=== PATIENT | male | born 1970 | race Caucasian/White ===

== ENCOUNTER → 2017-11-16 16:40 | Outpatient (CLI) | payer OTHER, SELFPAY ==
[2017-11-16 17:36] LABS: ALB/GLOB Ratio 1.1 RATIO (0.9-2.4); AST(SGOT) 21 U/L (15-37); Alanine Aminotransfer ALT/SGPT 26 U/L (16-61); Albumin, Serum 3.8 g/dL (3.2-5.0); Alkaline Phosphatase 68 U/L (45-117); Anion Gap 6 (5-15); BUN 11 mg/dL (7-18); BUN/Creat Ratio 10.7 RATIO (10-20); Calcium,Total 8.1 mg/dL (8.5-10.1); Chloride 107 mmol/L (98-107); Creatinine, Serum 1.03 mg/dL (0.70-1.30); EST Glomerular Filtration Rate 83 mL/min (>60); Est Glom Filt Rate - Afr Amer 100 mL/min (>60); Globulin 3.5 g/dL (2.2-4.2); Glucose 90 mg/dL (74-106); Potassium 3.8 mmol/L (3.5-5.1); Protein, Total 7.3 g/dL (6.4-8.2); Sodium Level 140 mmol/L (136-145)
== END ==
LOC: BFHLAB 16:43
PROVIDERS: Family Provider Family Medicine; PCP Family Medicine; Visit Provider Family Medicine
DX: Z51.81 Encounter for therapeutic drug level monitoring (principal); R35.8 Other polyuria
CPT/HCPCS: 36415; 80053; 83036

== ENCOUNTER → 2018-06-13 16:16 | Outpatient (CLI) | payer OTHER, SELFPAY ==
--- NOTE | 2018-06-13 16:36 | MRI_ITS ---
STUDY: MRI LUMBAR SPINE WITHOUT CONTRAST REASON FOR EXAM: Male, 48 years old. Pain and history of degenerative disc disease TECHNIQUE: Standardized fat and water weighted pulse sequences were obtained in the sagittal and axial planes. COMPARISON: August 07, 2016 FINDINGS: T12-L1: Normal endplates. Normal disc height, hydration and morphology. Normal bilateral facet joints. Normal central canal and bilateral lateral recesses. Normal bilateral intervertebral neural foramina. Normal lumbar lordosis. There is no substantial scoliosis. Normal conus medullaris that terminates at the T12 level. L1-2: Normal endplates. Normal disc height, hydration and morphology. Normal bilateral facet joints. Normal central canal and bilateral lateral recesses. Normal bilateral intervertebral neural foramina. L2-3: Normal endplates. Normal disc height, hydration and morphology. Normal bilateral facet joints. Normal central canal and bilateral lateral recesses. Normal bilateral intervertebral neural foramina. L3-4: Normal endplates. Normal disc height, hydration and morphology. Normal bilateral facet joints. Normal central canal and bilateral lateral recesses. Normal bilateral intervertebral neural foramina. L4-5: Disc space narrowing and desiccation. Bulging annulus with mild central canal and moderate bilateral foraminal stenoses. This is unchanged. L5-S1: Disc space narrowing and desiccation. Broad central and right paracentral disc protrusion with mild central canal stenosis. Bulging annulus with mild bilateral foraminal stenoses. This is unchanged. Normal visualized sacral ala. Normal visualized paraspinous soft tissue structures. MRI/Spine Lumbar (Routine) IMPRESSION: Stable lower lumbar disc disease. Moderate bilateral foraminal stenoses at the L4-5 level. Electronically Signed: Forrest Dash MD at 1:48 EST Tel , Service support ,
--- OUTSIDE RECORDS SUMMARY | 2018-07-30 13:54 | XMS RPT_ITS ---
:1970 Author Organization OH[facility] Care Team Providers Name Role Phone Flo Tiwari Attending Unavailable Flo Tiwari Primary Care Unavailable Flo Tiwari Attending Unavailable Flo Tiwari Referring Unavailable Flo Tiwari Primary Care Unavailable PROBLEMS PROBLEMS DATE TYPE CONDITION / CODE ATTENDING STATUS SOURCE 11/16/2017 Unknown Z51.81 - Flo Tiwari Active [place] Encounter for Community therapeutic drug Hospital level monitoring Repository / Z51.81(ICD-10) 11/16/2017 Unknown R35.8 - Other Flo Tiwari Active [place] polyuria / Community R35.8(ICD-10) Hospital Repository PROCEDURES PROCEDURES No Procedure Records FoundRESULTS RESULTS SPINE LUMBAR Observed: 06/13/2018 Status: F Source: [place] (ROUTINE) 4:37 PM [facility] HOSPITAL REPOSITORY [facility] Imaging Services [address] [place] [address] Spine Lumbar (Routine) MR#: [id number] Acct: [id number] Name: SARATH ALCAZAR Rep #: [id number] : 1970 M 48 From: Forrest Dash MD PCP: Flo Tiwari DO Status: REG CLI Study: Spine Lumbar (Routine) Date of Exam: 06/13/18 Exam# [id number] Ordering Dr: Flo Tiwari DO STUDY: MRI LUMBAR SPINE WITHOUT CONTRAST REASON FOR EXAM: Male, 48 years old. Pain and history of degenerative disc disease TECHNIQUE: Standardized fat and water weighted pulse sequences were obtained in the sagittal and axial planes. COMPARISON: August 07, 2016 FINDINGS: T12-L1: Normal endplates. Normal disc height, hydration and morphology. Normal bilateral facet joints. Normal central canal and bilateral lateral recesses. Normal bilateral intervertebral neural foramina. Normal lumbar lordosis. There is no substantial scoliosis. Normal conus medullaris that terminates at the T12 level. L1-2: Normal endplates. Normal disc height, hydration and morphology. Normal bilateral facet joints. Normal central canal and bilateral lateral recesses. Normal bilateral intervertebral neural foramina. L2-3: Normal endplates. Normal disc height, hydration and morphology. Normal bilateral facet joints. Normal central canal and bilateral lateral recesses. Normal bilateral intervertebral neural foramina. L3-4: Normal endplates. Normal disc height, hydration and morphology. Normal bilateral facet joints. Normal central canal and bilateral lateral recesses. Normal bilateral intervertebral neural foramina. L4-5: Disc space narrowing and desiccation. Bulging annulus with mild central canal and moderate bilateral foraminal stenoses. This is unchanged. L5-S1: Disc space narrowing and desiccation. Broad central and right paracentral disc protrusion with mild central canal stenosis. Bulging annulus with mild bilateral foraminal stenoses. This is unchanged. Normal visualized sacral ala. Normal visualized paraspinous soft tissue structures. MRI/Spine Lumbar (Routine) IMPRESSION: Stable lower lumbar disc disease. Moderate bilateral foraminal stenoses at the L4-5 level. Electronically Signed: Forrest Dash MD at 1:48 EST Tel , Service support , CC: Flo Tiwari DO [employer]: Signed HEMOGLOBIN A1C Collected: 11/16/2017 Status: F Source: [place] 4:43 PM [facility] REPOSITORY TYPE CODE TESTS RESULT OUT OF RANGE REFERENCE UNITS LAB L501.9985 4.2-6.3 % Normal HGB A1C 5.0 Performed By: #### L501.9985 #### [facility] Laboratory [address] [place], [place], [address] COMPREHENSIVE METABOLIC Collected: 11/16/2017 Status: F Source: [place] [facility] 4:43 PM [facility] REPOSITORY Order Comment: Comments: WHOLE BLOOD, SEND BOTH TUBES PLEASE TYPE CODE TESTS RESULT OUT OF RANGE REFERENCE UNITS LAB L501.0100 74-106 mg/dL Normal GLU 90 Result Comment: Please note revised GLUCOSE reference range effective 2017. LAB L501.1000 7-18 mg/dL Normal BUN 11 LAB L501.1100 0.70-1.30 mg/dL Normal CREAT,SERUM 1.03 Result Comment: The validity of the calculated GFR AND GFRAA in patients over 70 years has not been determined. Clinical correlation is essential. LAB L501.1110 >60 mL/min Normal EST GFR 83 Result Comment: Non- GFR Calc LAB L501.1115 >60 mL/min Normal EST GFR - AA 100 Result Comment: GFR Calc LAB L501.1300 10-20 RATIO Normal BUN/CRE 10.7 LAB L501.1500 6.4-8.2 g/dL T Normal PROT 7.3 LAB L501.1800 3.2-5.0 g/dL Normal ALB 3.8 LAB L501.1950 2.2-4.2 g/dL Normal GLOB 3.5 LAB L501.2000 0.9-2.4 RATIO Normal A/G 1.1 LAB L501.2200 8.5-10.1 mg/dL Low CA 8.1 LAB L501.4100 15-37 U/L Normal AST 21 LAB L501.4305 45-117 U/L Normal ALK P 68 LAB L501.4405 16-61 U/L Normal ALT 26 LAB L501.4600 0.20-1.00 mg/dL T Normal BILI 0.60 LAB L501.5300 136-145 mmol/L NA Normal 140 LAB L501.5600 3.5-5.1 mmol/L K Normal 3.8 LAB L501.5900 98-107 mmol/L CL Normal 107 LAB L501.6100 21.0-32.0 mmol/L Normal CO2 27.0 LAB L501.6200 5-15 Normal GAP 6 Performed By: #### L500.4050 #### [facility] [address] [place], [address] MISCELLANEOUS LAB Collected: 11/16/2017 Status: F Source: [place] PROCEDURE 4:43 PM [facility] REPOSITORY Order Comment: Comments: WHOLE BLOOD, SEND BOTH TUBES PLEASE Test(s) Ordered: [id number] TYPE CODE TESTS RESULT OUT OF RANGE REFERENCE UNITS LAB L801.1541 Normal [facility] [place] Result Comment: TEST RESULT LIMITS Drug Screen 16 w/Conf, WB AMPHETAMINES, [place] Negative ng/mL Cutoff:50 BARBITURATES, [place] Negative ug/mL Cutoff:0.1 BENZODIAZEPINES, [place] Negative ng/mL Cutoff:20 COCAINE/METABOLITE,IA Negative ng/mL Cutoff:25 PHENCYCLIDINE, [place] Negative ng/mL Cutoff:8 THC (MARIJUANA) MTB,IA Negative ng/mL Cutoff:5 OPIATES, IA ++POSITIVE++ ng/mL Cutoff:5 OXYCODONES, IA Negative ng/mL Cutoff:5 METHADONE, IA Negative ng/mL Cutoff:25 FENTANYL, IA Negative ng/mL Cutoff:1.0 BUPRENORPHINE, IA Negative ng/mL Cutoff:1.0 PROPOXYPHENE, IA Negative ng/mL Cutoff:50 MEPERIDINE, IA Negative ng/mL Cutoff:100 TRAMADOL, IA Negative ng/mL Cutoff:50 GABAPENTIN, [place] ++POSITIVE++ ug/mL Cutoff:1.0 CARISOPRODOL, IA Negative ug/mL Cutoff:0.5 This test was developed and its performance characteristics determined by [facility]. It has not been cleared or approved by the Food and Drug Administration. OPIATES,MS,WB/SP RFX Opiate Confirmation Positive Codeine Negative ng/mL Morphine 20.8 ng/mL 6-Acetylmorphine Negative Hydrocodone Negative ng/mL Hydromorphone Negative ng/mL Dihydrocodeine Negative ng/mL Confirmation threshold: 1.0 ng/mL GABAPENTIN,IA,WB/SP RFX Gabapentin Confirmation Positive Gabapentin 4.0 ug/mL Confirmation threshold: 1.0 ug/mL TESTING PERFORMED AT [facility]. ORIGINAL REPORT ON FILE IN LAB CONTAINS ADDITIONAL TEST SITE INFORMATION. Performed By: #### L801.1541 #### [facility] [address] [place], [address] ALLERGIES ALLERGIES DATE TYPE / CODE NAME / CODE REACTION SEVERITY SOURCE 06/26/2014 Drug No Known Unknown [facility] Allergy/4160 Allergies/F00 Hospital 18423(SNOMED [id number](RXNOR Repository CT) M) ENCOUNTERS ENCOUNTERS ADMIT/DISCHARGE ACCOUNT ADMITTING ENCOUNTER LOCATION SOURCE NUMBER CLASS 06/13/2018 [id number] Ambulatory [facility] 2 [facility] ing:MRI Repository 11/16/2017 [id number] [facility] 9 [facility] ing:BFHLAB Repository PAYERS PAYERS ENCOUNTER GUARANTOR PAYER SUBSCRIBER SOURCE 06/13/2018 BRAIN E Primary MELISA Mujica [place] [id number] Insurance:Arlette BUTTS: Community [place]: [id number] [id number] Repository [address]Xfw: 330) Date:[id number] [phone] () [id number], [place] [address]GL: 06/13/2018 [facility] [place] [facility]SELF [facility] Number: Effective Repository Date:2018-06-05 11/16/2017 Sarath E Primary MELISA Mujica [place] [id number] Insurance:Arlette BUTTS: Community [place]: [id number] [id number] Repository [address]Ytg: [phone]) Date:[id number] [phone] () [id number], [place] [address]NF: 11/16/2017 Secondary NOT GIVENUNK [place] Insurance:SELF PAY [facility] Number: Effective Repository Date:2017-11-16
== END ==
LOC: MRI 16:18
PROVIDERS: Family Provider Family Medicine; PCP Family Medicine; Referring Provider Family Medicine; Visit Provider Family Medicine
DX: M48.061 Spinal stenosis, lumbar region without neurogenic claudication (principal); M51.36 Other intervertebral disc degeneration, lumbar region; M51.16 Intervertebral disc disorders with radiculopathy, lumbar region
CPT/HCPCS: 72148

== ENCOUNTER → 2020-05-25 16:24 | Outpatient (CLI) | payer OTHER, SELFPAY ==
[2020-05-25 17:27] LABS: Erythrocyte Sedimentation Rate 3 mm/hr (0-15)
[2020-05-25 17:51] LABS: Rheumatoid Factor < 10.0 IU/mL (<15)
[2020-05-28 09:55] LABS: CCP IgG Antibodies 8 units (0-19)
[2020-05-28 16:04] LABS: ANTINUCLEAR ANTIBODIES DIRECT Negative (Negative)
== END ==
LOC: BFHLAB 16:25
PROVIDERS: PCP Family Medicine; Visit Provider Family Medicine
DX: M25.50 Pain in unspecified joint (principal); R79.82 Elevated C-reactive protein (CRP)
CPT/HCPCS: 36415; 85652; 86038; 86140; 86200; 86225; 86235; 86431

== ENCOUNTER → 2021-01-21 17:40 | Outpatient (CLI) | payer OTHER, SELFPAY ==
--- NOTE | 2021-01-21 18:15 | MRI_ITS ---
STUDY: MRI LUMBAR SPINE WITHOUT CONTRAST REASON FOR EXAM: Male, 50 years old. RIGHT lumbar radiculopathy, low back pain foot numbness TECHNIQUE: Standardized fat and water weighted pulse sequences were obtained in the sagittal and axial planes. COMPARISON: 13 June 2018, 07 August 2016 FINDINGS: Appearance is similar and comparable to prior. T12-L1: Normal endplates. Normal disc height, hydration and morphology. Normal bilateral facet joints. Normal central canal and bilateral lateral recesses. Normal bilateral intervertebral neural foramina. Normal lumbar lordosis. There is no substantial scoliosis. Normal conus medullaris that terminates at the T12-L1 with normal cauda equina L1-2: Normal endplates. Normal disc height, hydration and morphology. Normal bilateral facet joints. Normal central canal and bilateral lateral recesses. Normal bilateral intervertebral neural foramina. L2-3: Normal endplates. Normal disc height, hydration and morphology. Normal bilateral facet joints. Normal central canal and bilateral lateral recesses. Normal bilateral intervertebral neural foramina. L3-4: Normal endplates. Normal disc height, hydration and morphology. Normal bilateral facet joints. Normal central canal and bilateral lateral recesses. Normal bilateral intervertebral neural foramina. L4-5: Degenerated endplates. Decreased disc height, altered hydration and degenerative bulge morphology. Mildly degenerated bilateral facet joints. Canal is patent. There is minor right lateral recess stenosis with patent left recess. Foramina are moderately stenotic. L5-S1: Degenerated endplates. Decreased disc height, altered hydration and degenerative bulge morphology. There is proximity of herniated disc material to the right traversing L5 nerve root without anatomic compression. Mildly degenerated bilateral facet joints. Canal And lateral recesses are patent Foramina are moderately stenotic. Normal visualized sacral ala. Normal visualized paraspinous soft tissue structures. MRI/Spine Lumbar (Routine) IMPRESSION: 1. Stable appearance since prior. 2. Patent canal. 3. L4-L5 and L5-S1 disc degeneration with bilateral moderate foraminal stenosis. 4. Stability since 2018. Electronically Signed: Eduar Anthony MD at 20:16 EDT Tel , Service support ,
== END ==
PROVIDERS: PCP Family Medicine; Referring Provider Family Medicine; Visit Provider Family Medicine
DX: M54.17 Radiculopathy, lumbosacral region (principal); M51.26 Other intervertebral disc displacement, lumbar region
CPT/HCPCS: 72148

== ENCOUNTER → 2021-03-28 10:22 | Outpatient (CLI) | payer OTHER, SELFPAY ==
--- NOTE | 2021-03-28 12:22 | EKG12_ITS ---
Test Reason : PRE OP Blood Pressure : / mmHG Vent. Rate : 094 BPM Atrial Rate : 094 BPM P-R Int : 150 ms QRS Dur : 114 ms QT Int : 386 ms P-R-T Axes : 056 -12 022 degrees QTc Int : 482 ms Normal sinus rhythm Prolonged QT Abnormal ECG Confirmed by WALDO MCCOY, NAKITA ([id number]), school photograph editor DARA REINA ([id number]) on 03/30/2021 10:59:53 AM Referred By: Ritesh Palacios Confirmed By:NAKITA HAAS MD
[2021-03-28 12:52] LABS: Absolute Lymphocyte Count 1.85 X10^3/uL (0.83-4.51); Absolute Neutrophil Count 5.1 X10^3/uL (2.0-7.7); Basophil# 0.04 X10^3/uL; Basophil% 0.5 % (0-1); Eosinophil# 0.23 X10^3/uL; Eosinophils% 2.9 % (0-5); Hematocrit 41.8 % (40-54); Hemoglobin 14.5 g/dL (13.0-16.5); Lymphocyte # 1.85 X10^3/ul (0.83-4.51); Lymphocyte % 23.4 % (19-41); Mean Corp Hgb Conc 34.7 g/dL (32-36); Mean Corpuscular Hgb 29.8 pg (27.0-32.0); Mean Platelet Vol. 9.2 fl (6.2-12.0); Monocyte# 0.66 X10^3/uL; Monocyte% 8.4 % (0-10); NRBC Flagged by Analyzer 0 % (0-5); Neutrophil # 5.08 X10^3/uL (2.7-7.7); Neutrophil % 64.3 % (47-70); Platelet Count 218 K/mm3 (150-450); RBC Distribution Width SD 37.7 fl (35.1-43.9); Red Blood Count 4.86 M/mm3 (4.6-6.2); White Blood Count 7.9 K/mm3 (4.4-11.0)
[2021-03-28 13:29] LABS: Magnesium 2.3 mg/dL (1.6-2.6)
[2021-03-28 13:34] LABS: Anion Gap 7 (5-15); BUN 10 mg/dL (7-18); BUN/Creat Ratio 10.6 RATIO (10-20); Calcium,Total 8.1 mg/dL (8.5-10.1); Chloride 106 mmol/L (98-107); Creatinine, Serum 0.95 mg/dL (0.70-1.30); EST Glomerular Filtration Rate 90 mL/min (>60); Est Glom Filt Rate - Afr Amer 109 mL/min (>60); Glucose 109 mg/dL (74-106); Potassium 3.4 mmol/L (3.5-5.1); Sodium Level 139 mmol/L (136-145)
[2021-03-28 14:13] LABS: HIV - WCH Non-Reactive (Nonreactive); Hepatitis B Surface Antibody Non-Reactive; Hepatitis C Antibody Non-Reactive (Nonreactive)
[2021-03-29 14:38] LABS: Hepatitis A AB, Total Negative (Negative)
--- NOTE | 2021-04-04 09:00 | PCM.HP.BLA ---
History and Physical Date of Admission: 04/05/21 [facility] [id number] [id number] OFFICE VISITDate of Service: 02/02/21 MR#:[id number]:[id number]: SARATH ALCAZAR ERep #:[id number] Provider:Dr. Ritesh Palacios DOAge/Sex: 51/M Location:S[place]AHKeaton:Signed Intake Vital Signs 02/02/21 14:32 BMI 27.9 Intake Visit Reasons: LUMBAR SPINE Allergies No Known Allergies Allergy (Verified 06/26/14 11:18) Medications cyclobenzaprine 10 mg tablet 10 mg PO TID 02/02/21 [History Confirmed 02/02/21] gabapentin 100 mg capsule 100 mg PO TID 02/02/21 [History Confirmed 02/02/21] hydroxychloroquine 200 mg tablet 200 mg PO DAILY 02/02/21 [History Confirmed 02/02/21] oxycodone 15 mg tablet 15 mg PO BID PRN 02/02/21 [History Confirmed 02/02/21] tadalafil 5 mg tablet 5 mg PO DAILY 02/02/21 [History Confirmed 02/02/21] tamsulosin 0.4 mg capsule 0.4 mg PO DAILY 02/02/21 [History Confirmed 02/02/21] [facility] Medical History (Updated 02/02/21 @ 15:[address] Ritesh Palacios DO) Eye injury Family History (Updated 02/02/21 @ 14:58 by Ashley Jasso) Mother Diabetes Hypertension Father Diabetes Grandmother Cancer Social History Smoking Status: Never smoker Smokeless tobacco user: snuff HPI LUMBAR SPINE Details: Parts of this documentation were recorded by a scribe, this documentation accurately reflects the service provided and the decisions made by me, Dr. Ritesh Palacios DO 02/02/21 [id number]. SARATH ALCAZAR is a 51 year old M here today for lumbar spine pain. Patient was referred by Dr. Tiwari and received a MRI of his Lumbar spine in 01/19. Patient states his pain is localized in his lumbar spine all tho he does have some aches/pains in his legs and feet that he states is do to the way he walks from his back pain. Denies any radiating pain from his lower back. Patient states he does have some numbness/tingling in his right leg and foot. Patient states he does get pain in his buttocks on occasion but never in his hips or groin. Patient states he does have issues with bowel movements and is unsure if that is do to something in his back. Patient states he has had back pain his whole life/about 10 years old. Patient has had injections in his back about 4-5 years ago, he stopped getting them done because they stopped working. Patient has tried the following conservative treatments for six weeks or greater: Home exercises provided by a provider, corticosteroid injections and oral corticosteroids, narcotic and non-narcotic analgesic medication(s), aged or disabled carer, PT/OT, bracing, pain management techniques. Patient has found no relief and would like to further investigate their s/s. Therefore, will order a(n) [TEST/STUDY] to appropriately determine if [tx/sx] would be appropriate for the patient. Sarath is a most pleasant gentleman 51 years old whose chief complaint is that of low back pain. He has a secondary complaint of occasional pain in his right leg but the majority of his pain is undoubtedly in his low back activity tends to make it worse though not necessarily every time. His job requires him to do some lifting and some physical work but he is able to do it. He states that the last year the pain has gradually worsened more so than it used to be which is why he is here for an opinion. A surgeon in [place] told him he could take away his leg pain but not his back pain. His back pain however is by far his main complaint. When the pain is bad it is as bad as an 8/10 when it is good it as little as a 4/10, but it is always there every single day. He denies any bowel or bladder dysfunction. He denies a history of unexplained weight loss night fever sweats or chills. On examination he has little pain with extension little pain with flexion of his lumbar spine. He has good motor strength of all the major muscle groups of both lower extremities. He is neurologically intact with 2+ patella and 2+ Achilles reflexes bilaterally. He has no muscle atrophy. He can stand on his toes and he can stand on his heels without difficulty. He has no long tract signs. Clonus is absent and Babinski's are downgoing. I reviewed his MRI scan demonstrates that he has significant degeneration of the L4-5 and L5-S1 discs. With small protrusions of each. We had a long discussion regarding any surgical options that are available. I told him if anything is done that he should have a fusion of both levels. In this day and age we usually does these from the front and the back we called a 360 degree fusion. Of course this is a big undertaking and it would require a long recovery. Told him that he could probably be off work for his little as 4 months and probably as much is 6 months. This is because of the nature of what he does. 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 Nonetheless he has a lot to think about. He will discuss it with his and in fact bring her in if he decides that he wants to have surgical intervention. Otherwise I will see him on a as needed basis. Coding Level of Care Code Off vis,new,level 3 Diagnoses DDD (degenerative disc disease), lumbar M51.36 Time Spent (min) 35 Assessment and Plan Assessment and Plan (1) DDD (degenerative disc disease), lumbar
== END ==
PROVIDERS: Anesthesiology; PCP Family Medicine; Referring Provider Orthopaedic Surgery; Visit Provider Orthopaedic Surgery
DX: Z01.818 Encounter for other preprocedural examination (principal); Z01.810 Encounter for preprocedural cardiovascular examination; M51.36 Other intervertebral disc degeneration, lumbar region; R94.31 Abnormal electrocardiogram [ECG] [EKG]
CPT/HCPCS: 36415; 80048; 83735; 85025; 86703; 86706; 86708; 86803; 87081; 93005

== ENCOUNTER 2021-06-28 13:30 | Outpatient (RCR) | payer OTHER, SELFPAY ==
--- NOTE | 2021-05-06 11:21 | HP.PTEVAL ---
Patient's Visit Information BETITO ALCAZAR is a 51 year old M referred to Physical Therapy by ARCHANA Ruvalcaba with a diagnosis of INTERVERTEBRAL DISC DISPLACEMENT LUMBAR,DEGENERATION DISC LUMBAR. Date of Evaluation: 05/06/21 Physical Therapist: Nahun Benitez, PT, Cert MDT, OCS - Visit Plan Frequency: 2x /Week Duration: 4 Weeks Plan: PT INTERVETIONS WITH POSTURAL EX'S,DLS ,LE FLEXABLITY ,POSTURE TRAINING AND MODALTIES - Subjective This 51 y/o male presents [facility] physical therapy with lumbar pain. Patient has lumbar pain for many years . Symptoms progressively worse over time. Most recently symptoms worse with DDD and HNP L5 -S1 from MRI December 2020. Seen DR Palacios recommended surgery but insurance denied. So ,recommend PT . Patient has had prior PT and tried epidural injections which hasn't helped. Pain is located lumbar left > right with occasional right leg pain. Patient has paresthesia/tingling right leg. Patient denies bowel problems. Coughing/sneezing -.Patient pain affects sleeping. Patient has no abnormal night pain. Patient has seen pain management 2018. MEDS: gabapentin, oxycodone. Patient back pain affects QOL and function. VOCATION: [employer]. SOCIAL: - Pain Bilateral Back Pain Intensity (Out of 10): 7 Pain Intensity Range: 10 - Objective POSTURE: mild forward posture. GAIT: reciprocal pattern. SYMMTRIES : align. PALPATION: unremarkable. NEURO: c/o paresthesia/tingling, reflexes L3-4,L4-5 ,L5-S1 1/3. FLEXABILITY: hamstring mod tight. LUMBAR ROM: flexion mod loss pain, extension mod loss pain, side glides mod pain left. MMT: quads/hams 4/5,hip flexion 4-/5,ankle 4/5 - Special Tests L/S Slump test left side: Negative L/S Slump test right side: Negative L/S Left Straight Leg Raise: Negative L/S Right Straight Leg Raise: Negative Lumbar Standing: Flexion - Mechanical Response: No effect Lumbar Standing: Flexion - Symptoms During Testing: Increases Lumbar Standing: Flexion - Symptoms After Testing: Worse Lumbar Standing: Extension - Mechanical Response: No effect Lumbar Standing: Extension - Symptoms During Testing: Abolishes Lumbar Standing: Extension - Symptoms After Testing: Worse Lumbar Standing: Right Side Glides - Mechanical Response: No effect Lumbar Standing: Right Side [place] - Symptoms During Testing: No effect Lumbar Standing: Right Side [place] - Symptoms After Testing: No effect Lumbar Standing: Left Side [place] - Mechanical Response: No effect Lumbar Standing: Left Side [place] - Symptoms During Testing: Increases Lumbar Standing: Left Side [place] - Symptoms After Testing: No better Lumbar Lying: Flexion - Mechanical Response: No effect Lumbar Lying: Flexion - Symptoms During Testing: No effect Lumbar Lying: Flexion - Symptoms After Testing: No effect Lumbar Lying: Extension - Mechanical Response: No effect Lumbar Lying: Extension - Symptoms During Testing: Increases Lumbar Lying: Extension - Symptoms After Testing: Worse - Balance/Special Test Scores Oswestry Low Back Score: 31 - Goals Goal 1:: I with HEP for back Goal Time Frame: 4-6 Weeks Goal 2:: Patient to improve posture/body mechanics for ADL'S Goal Time Frame: 4-6 Weeks Goal 3:: Patient to demonstrate 50% improvement with decrease lumbar pain to improve function Goal Time Frame: 4-6 Weeks Goal 4:: Patient to improve lumbar ROM for function of recovery. Goal Time Frame: 4-6 Weeks Goal 5:: Patient to improve back owestry score by 5 points or > to improve QOL Goal Time Frame: 4-6 Weeks - Rehabilitation Potential Physical Therapy Diagnosis: This patient has HNP/DDD causing pain with decrease ROM ,weakness impairs function ,job demands thus benefit from skilled PT Rehabilitation Potential: Good - Anticipated Interventions Patient/Client Instruction: Educate patient on: Condition, Plan of Care For the Purpose of:: To decrease pain, To increase ROM, To improve muscle performance and motor function, To improve ability to perform ADL's, To increase tolerance to activity/condition/position, To improve performance and independence with ADL's, To improve ability of physical actions for home/community/work/leisure, To improve health of tissue, To decrease soft tissue restriction, To increase flexibility/ROM Therapeutic Exercise to Include: Body mechanics, Postural training, Flexibilty training, Active ROM, Dynamic Lumbar Stabilization For the Purpose of:: To decrease pain, To increase ROM, To improve muscle performance and motor function, To improve ability to perform ADL's, To increase tolerance to activity/condition/position, To improve ability of physical actions for home/community/work/leisure, To improve health of tissue, To decrease soft tissue restriction, To increase flexibility/ROM, To reduce risk of recurrence TENS: Yes IF ES: Yes Cryotherapy (ice pack, ice massage): Yes Thermo therapy (hot pack): Yes Ultrasound (thermal/non thermal): Yes For the Purpose of:: To decrease pain, To improve nutrient delivery to tissue, To increase oxygenation perfusion, To improve health of tissue, To decrease soft tissue restriction Thank you for the opportunity to evaluate your patient. For Medicare and Medicare HMO plans, please review the plan of care and approve it. It will need to be FAXED BACK to us at [phone] for Medicare purposes. For Medicare only, by signing this I certify the plan of care. Please let me know if there are questions or concerns regarding this plan of care. Physician Signature: Date:
--- NOTE | 2021-07-19 12:51 | HP.PTDCSUM ---
It has been my pleasure to treat BETITO ALCAZAR referred by ARCHANA Ruvalcaba, with the diagnosis of INTERVERTEBRAL DISC DISPLACEMENT LUMBAR,DEGENERATION DISC LUMBAR for a total of 9 visit(s). Discharge Date: 06/28/21 Please see the following information for a summary of their discharge status. Subjective: Plan to return to DR Palacios min improvement Bilateral Back Pain Intensity (Out of 10): 7 % Improvement: 40 Objective/Function: POSTURE: WFL. GAIT: RECIPROCAL PATTERN. PALAPTION: UNREMARKABLE. MMT: QUADS/HAMS/HIP 4/5 ,ANKLE 4/5. LUMBAR ROM: FLEXION MIN/MOD LOSS,EXTENSION MIN /MOD LOSS,SIDE GLIDES MIN ,OSS Goal 1:: I with HEP for back Goal Progress: Goal Met Goal 2:: Patient to improve posture/body mechanics for ADL'S Goal Progress: Goal Met Goal 3:: Patient to demonstrate 50% improvement with decrease lumbar pain to improve function Goal Progress: Progressing Goal 4:: Patient to improve lumbar ROM for function of recovery. Goal Progress: Progressing Goal 5:: Patient to improve back owestry score by 5 points or > to improve QOL Goal Progress: Progressing Plan: d/c RTD Discharge Comments: HEP If there are questions or concerns regarding this patient's physical therapy, please feel free to call me at [phone]. Thank you for the referral of this patient. Sincerely, Nahun Benitez PT, Cert MDT, OCS Balance/Gait/Functional tests - Balance/Special Test Scores Oswestry Low Back Score: 12
== END 2021-06-28 19:00 | disposition home or self-care (01) ==
LOC: PT 13:30
PROVIDERS: PCP Family Medicine; Referring Provider Physician Assistant; Visit Provider Physician Assistant
DX: M51.26 Other intervertebral disc displacement, lumbar region (principal); M51.36 Other intervertebral disc degeneration, lumbar region
CPT/HCPCS: 97110; 97162

== ENCOUNTER → 2021-09-20 | Outpatient (CLI) | payer BC, SELFPAY ==
--- NOTE | 2021-09-26 16:22 | EKG12_ITS ---
Test Reason : PREOP Blood Pressure : / mmHG Vent. Rate : 086 BPM Atrial Rate : 086 BPM P-R Int : 148 ms QRS Dur : 114 ms QT Int : 394 ms P-R-T Axes : 028 -15 033 degrees QTc Int : 471 ms Normal sinus rhythm Normal ECG Confirmed by WALDO MCCOY, NAKITA ([id number]), marketing editor DARA REINA ([id number]) on 09/27/2021 10:33:42 AM Referred By: Ritesh Palacios Confirmed By:NAKITA HAAS MD
[2021-09-26 17:34] LABS: Absolute Lymphocyte Count 2.05 X10^3/uL (0.83-4.51); Absolute Neutrophil Count 4.5 X10^3/uL (2.0-7.7); Basophil# 0.04 X10^3/uL; Basophil% 0.5 % (0-1); Eosinophils% 2.6 % (0-5); Hematocrit 44.8 % (40-54); Hemoglobin 16.1 g/dL (13.0-16.5); Lymphocyte # 2.05 X10^3/ul (0.83-4.51); Lymphocyte % 26.9 % (19-41); Mean Corp Hgb Conc 35.9 g/dL (32-36); Mean Corpuscular Hgb 30.9 pg (27.0-32.0); Mean Platelet Vol. 9.6 fl (6.2-12.0); Monocyte# 0.75 X10^3/uL; Monocyte% 9.8 % (0-10); NRBC Flagged by Analyzer 0 % (0-5); Neutrophil # 4.54 X10^3/uL (2.7-7.7); Neutrophil % 59.5 % (47-70); Platelet Count 212 K/mm3 (150-450); RBC Distribution Width CV 12.2 % (11.6-14.6); RBC Distribution Width SD 38.5 fl (35.1-43.9); Red Blood Count 5.21 M/mm3 (4.6-6.2); White Blood Count 7.6 K/mm3 (4.4-11.0)
[2021-09-26 17:49] LABS: Anion Gap 6 (5-15); BUN 13 mg/dL (7-18); BUN/Creat Ratio 13.3 RATIO (10-20); Calcium,Total 8.7 mg/dL (8.5-10.1); Chloride 108 mmol/L (98-107); Creatinine, Serum 0.98 mg/dL (0.70-1.30); EST Glomerular Filtration Rate 86 mL/min (>60); Est Glom Filt Rate - Afr Amer 105 mL/min (>60); Glucose 86 mg/dL (74-106); Potassium 3.8 mmol/L (3.5-5.1); Sodium Level 140 mmol/L (136-145)
[2021-09-26 18:35] LABS: Magnesium 2.3 mg/dL (1.6-2.6)
[2021-09-27 09:21] LABS: HIV - WCH Non-Reactive (Nonreactive); Hepatitis B Surface Antibody Non-Reactive; Hepatitis C Antibody Non-Reactive (Nonreactive)
[2021-09-28 14:06] LABS: Hepatitis A AB, Total Negative (Negative)
== END | disposition home or self-care (01) ==
LOC: PAT 10-20 14:09
PROVIDERS: Anesthesiology; PCP Family Medicine; Referring Provider Orthopaedic Surgery; Visit Provider Orthopaedic Surgery
DX: Z01.818 Encounter for other preprocedural examination (principal)
CPT/HCPCS: 36415; 80048; 83735; 85025; 86703; 86706; 86708; 86803; 87081; 93005

== ENCOUNTER → 2022-01-11 | Outpatient (CLI) | payer OTHER, SELFPAY ==
[2022-01-11 16:38] LABS: Absolute Lymphocyte Count 2.31 X10^3/uL (0.83-4.51); Absolute Neutrophil Count 4.8 X10^3/uL (2.0-7.7); Basophil# 0.07 X10^3/uL; Basophil% 0.8 % (0-1); Eosinophil# 0.44 X10^3/uL; Eosinophils% 5.2 % (0-5); Hematocrit 44.5 % (40-54); Hemoglobin 15.7 g/dL (13.0-16.5); Lymphocyte # 2.31 X10^3/ul (0.83-4.51); Lymphocyte % 27.4 % (19-41); Mean Corp Hgb Conc 35.3 g/dL (32-36); Mean Corpuscular Hgb 30.4 pg (27.0-32.0); Mean Corpuscular Volume 86.2 fL (80-94); Mean Platelet Vol. 9.8 fl (6.2-12.0); Monocyte# 0.76 X10^3/uL; NRBC Flagged by Analyzer 0 % (0-5); Neutrophil # 4.83 X10^3/uL (2.7-7.7); Neutrophil % 57.2 % (47-70); Platelet Count 206 K/mm3 (150-450); RBC Distribution Width CV 11.9 % (11.6-14.6); RBC Distribution Width SD 37.7 fl (35.1-43.9); Red Blood Count 5.16 M/mm3 (4.6-6.2); White Blood Count 8.4 K/mm3 (4.4-11.0)
[2022-01-11 16:53] LABS: Erythrocyte Sedimentation Rate 1 mm/hr (0-20)
[2022-01-11 17:20] LABS: ALB/GLOB Ratio 1.2 RATIO (0.9-2.4); AST(SGOT) 20 U/L (15-37); Alanine Aminotransfer ALT/SGPT 33 U/L (16-61); Albumin, Serum 4.1 g/dL (3.2-5.0); Alkaline Phosphatase 65 U/L (45-117); Anion Gap 4 (5-15); BUN 15 mg/dL (7-18); BUN/Creat Ratio 13.8 RATIO (10-20); CRP < 2.90 mg/L (0.0-3.0); Calcium,Total 8.6 mg/dL (8.5-10.1); Chloride 108 mmol/L (98-107); Creatinine, Serum 1.09 mg/dL (0.70-1.30); EST Glomerular Filtration Rate 76 mL/min (>60); Est Glom Filt Rate - Afr Amer 92 mL/min (>60); Globulin 3.4 g/dL (2.2-4.2); Glucose 80 mg/dL (74-106); Potassium 3.7 mmol/L (3.5-5.1); Protein, Total 7.5 g/dL (6.4-8.2); Rheumatoid Factor < 10.0 IU/mL (<15); Sodium Level 141 mmol/L (136-145); Uric Acid 5.4 mg/dL (3.5-7.2)
[2022-01-14 08:22] LABS: CCP IgG Antibodies 7 units (0-19)
[2022-01-14 23:58] LABS: ANTINUCLEAR ANTIBODIES DIRECT Negative (Negative)
== END | disposition home or self-care (01) ==
LOC: LAB 15:51
PROVIDERS: PCP Family Medicine; Visit Provider Family Medicine
DX: M19.90 Unspecified osteoarthritis, unspecified site (principal); I10 Essential (primary) hypertension; R11.0 Nausea; M10.9 Gout, unspecified; R73.01 Impaired fasting glucose
CPT/HCPCS: 36415; 80053; 83036; 84550; 85025; 85652; 86038; 86140; 86200; 86225; 86235; 86431

== ENCOUNTER → 2024-03-07 | Outpatient (CLI) | payer OTHER, SELFPAY ==
[2024-03-07 18:03] LABS: OXY Internal Control LINE = VALID (VALID); Oxycodone Drug Screen Negative (<100 ng/mL)
[2024-03-08 10:41] LABS: Amphetamine Urine VISTA NEGATIVE (<1000 ng/mL); Barbiturate Urine VISTA NEGATIVE (< 200 ng/mL); Benzodiazepine Urine VISTA NEGATIVE (< 200 ng/mL); Cocaine Urine VISTA NEGATIVE (< 300 ng/mL); Ecstacy Urine VISTA NEGATIVE (< 500 ng/mL); Methadone Urine VISTA NEGATIVE (< 300 ng/mL); PCP Urine VISTA NEGATIVE (< 25 ng/mL); THC Urine VISTA NEGATIVE (< 50 ng/mL); Vista UDS pH Range 6
== END | disposition home or self-care (01) ==
PROVIDERS: PCP Family Medicine; Referring Provider Family Medicine; Visit Provider Family Medicine
DX: Z79.899 Other long term (current) drug therapy (principal)
CPT/HCPCS: 80307; 80365; G0480